=== PATIENT | female | born 1950 | race African-American/Black ===

== ENCOUNTER 2017-10-10 14:22 | Inpatient (IN) | payer MEDICARE ==
[~2017-10-10] VITALS: Ht 175.3 cm; Wt 107.5 kg
[2017-10-10 15:45] LABS: BASOPHILS % 1.2 % (0.0-2.0); HEMATOCRIT. 38.3 % (36.0-48.0); HEMOGLOBIN. 12.2 g/dL (12.0-16.0); LYMPHOCYTES % 41.6 % (20.0-50.0); MEAN CORPUSCULAR HEMOGLOBIN 25.1 pg (28.0-32.0); MEAN PLATELET VOLUME 9.9 fl (7.4-10.4); MONOCYTES % 8.9 % (2.0-8.0); NEUTROPHILS % 42.3 % (40.0-76.0); PLATELET 197 x1000/uL (130-400); RED BLOOD CELL COUNT 4.85 mill/uL (4.2-5.4); RED CELL DISTRIBUTION WIDTH 14.4 % (11.6-14.6)
[2017-10-10 15:50] LABS: CHLORIDE 105 mEq/L (98-107); PROTHROMBIN TIME 10.6 sec (9.4-11.6)
[2017-10-10 15:53] LABS: ETHANOL BLOOD < 10 mg/dL
[2017-10-10 16:00] LABS: TROPONIN I < 0.02 ng/mL (0.00-0.04)
[2017-10-10] MEDS ORDERED: LISI10TA5 PO (16:06)
[2017-10-10] MEDS ORDERED: ATORVASTATIN CALCIUM 40MG TABLET PO STA (16:24)
[2017-10-10] MEDS ORDERED: ASPIRIN 325MG TABLET PO ONE (16:30)
[2017-10-10] MEDS ORDERED: ATORVASTATIN CALCIUM 40MG TABLET PO SCH (16:58)
[2017-10-10] MEDS ORDERED: DOCUSATE SODIUM 100MG CAPSULE PO PRN (17:15)
[2017-10-10] MEDS ORDERED: ONDANSETRON HCL 4MG/2ML VIAL IV PRN (17:15)
[2017-10-10] MEDS ORDERED: MAGNESIUM/ALUMINUM HYDROXIDE/SIMETHICONE 30ML UDC PO PRN (17:15)
[2017-10-10] MEDS ORDERED: GUAIFENESIN 200MG/10ML SUGAR FREE UDC PO PRN (17:15)
[2017-10-10] MEDS ORDERED: ACETAMINOPHEN 325MG TABLET PO PRN (17:15)
[2017-10-10] MEDS ORDERED: IPRATROPIUM/ALBUTEROL 0.5-3(2.5)MG/3ML NEB INH PRN (17:15)
[2017-10-10] MEDS ORDERED: CLONIDINE 0.1MG TABLET PO PRN (17:15)
[2017-10-10] MEDS ORDERED: NA PHOS,M-B/NA PHOS,DI-BA ENEMA 118ML PR PRN (17:15)
[2017-10-10] MEDS ORDERED: DIPHENHYDRAMINE 50MG/ML VIAL IV PRN (17:15)
[2017-10-10] MEDS ORDERED: NITROGLYCERIN 0.4MG TABLET SL SL PRN (17:15)
[2017-10-10] MEDS ORDERED: MORPHINE SULFATE 4 MG/ML CPJ (NOT FOR IM USE) IV PRN (17:30)
[2017-10-10 17:31] LABS: CLARITY URINE CLEAR (CLEAR); COLOR URINE YELLOW (YELLOW); KETONES URINE NEGATIVE (NEGATIVE); LEUKOCYTE ESTERASE URINE TRACE (NEGATIVE); NITRITE URINE NEGATIVE (NEGATIVE); OCCULT BLOOD URINE NEGATIVE (NEGATIVE); PROTEIN URINE TRACE (NEGATIVE); SPECIFIC GRAVITY URINE 1.021 (1.005-1.030); UROBILINOGEN URINE 0.2 E.U./dL (0.2-1.0)
[2017-10-10 17:44] LABS: *AMPHETAMINES SCREEN URINE NEGATIVE (NEGATIVE); *BARBITURATES SCREEN URINE NEGATIVE (NEGATIVE); *BENZODIAZEPINES SCREEN URINE NEGATIVE (NEGATIVE); *COCAINE SCREEN URINE NEGATIVE (NEGATIVE); CANNABINOID URINE SCREEN NEGATIVE (NEGATIVE); METHADONE URINE SCREEN NEGATIVE (NEGATIVE); OPIATES URINE SCREEN NEGATIVE (NEGATIVE); PHENCYCLIDINE URINE SCREEN NEGATIVE (NEGATIVE)
[2017-10-10] MEDS ORDERED: TRAMADOL 50MG TABLET PO PRN (18:20)
[2017-10-10] MEDS ORDERED: METHYLPREDNISOLONE SOD SUCC 125 MG/2 ML VIAL IV ONE (18:30)
[2017-10-10] MEDS ORDERED: FAMOTIDINE 20MG/2ML VIAL IV ONE (18:30)
[2017-10-10] MEDS ORDERED: DIPHENHYDRAMINE 50MG/ML VIAL IV ONE (18:30)
[2017-10-10 20:31] VITALS: BP 138/95
[2017-10-10] MEDS ORDERED: ZOLPIDEM TARTRATE 5MG TABLET PO PRN (21:00)
[2017-10-10] MEDS: FAMOTIDINE 20MG/2ML VIAL IV SCH (21:14)
[2017-10-10] MEDS: ENOXAPARIN 30MG/0.3ML SYR SUBCUT SCH ×2 (21:14→21:15)
[2017-10-10 22:36] VITALS: BP 138/95
[2017-10-11 00:12] VITALS: BP 136/92
[2017-10-11 00:30] LABS: CREATINE KINASE 113 IU/L (26-192); CREATINE KINASE MB FRACTION 1.1 ng/mL (0.5-3.6); TROPONIN I < 0.02 ng/mL (0.00-0.04)
[2017-10-11 04:00] VITALS: BP 136/96
[2017-10-11 07:46] LABS: CREATINE KINASE 111 IU/L (26-192); CREATINE KINASE MB FRACTION 0.8 ng/mL (0.5-3.6); TROPONIN I < 0.02 ng/mL (0.00-0.04)
[2017-10-11 08:00] VITALS: BP 134/90
[2017-10-11] MEDS: ASPIRIN 325MG EC TABLET PO SCH (08:43)
[2017-10-11] MEDS: ENOXAPARIN 30MG/0.3ML SYR SUBCUT SCH ×2 (08:46→20:15)
[2017-10-11] MEDS: FAMOTIDINE 20MG/2ML VIAL IV SCH ×2 (08:46→20:16)
[2017-10-11 12:00] VITALS: BP 134/84
[2017-10-11 16:00] VITALS: BP 132/90
[2017-10-11 20:00] VITALS: BP 115/83
[2017-10-12 04:00] VITALS: BP 116/80
[2017-10-12 07:25] VITALS: BP 123/92
[2017-10-12] MEDS: FAMOTIDINE 20MG/2ML VIAL IV SCH (08:14)
[2017-10-12] MEDS: ASPIRIN 325MG EC TABLET PO SCH (08:14)
[2017-10-12] MEDS: ENOXAPARIN 30MG/0.3ML SYR SUBCUT SCH (08:15)
[2017-10-12 11:17] VITALS: BP 122/83
== END 2017-10-12 12:05 | disposition home or self-care (01) | DRG 69 ==
LOC: ER 14:49 → 7WST 16:51 → SUPCPDRO 16:57 → ENRESERV 19:31
PROVIDERS: ADMIT Internal Medicine; ATTEND Internal Medicine
DX: G45.9 Transient cerebral ischemic attack, unspecified (principal); E83.52 Hypercalcemia; I10 Essential (primary) hypertension; Z91.14 Patient's other noncompliance with medication regimen; E66.9 Obesity, unspecified; Z68.35 Body mass index [BMI] 35.0-35.9, adult; R29.810 Facial weakness; Z88.2 Allergy status to sulfonamides; Z88.8 Allergy status to other drugs, medicaments and biological substances
CPT/HCPCS: 36415; 70450; 70551; 71045; 80053; 80061; 80305; 81003; 82550; 82553; 82962; 83036; 84484; 85025; 85610; 93005; 93306; 93970; 96374; 96375; 97162; 97166; 99291; G0482; J1200; J1650; J2930; J3490